=== PATIENT | female | born 2000 | race Caucasian/White ===

== ENCOUNTER 2022-07-14 00:27 | Emergency (ER) | payer OTHER, SELFPAY ==
[2022-07-14 00:28] VITALS: BP 115/78; PULSE 77; RESP 18; TEMP 36.9; O2SAT 98; BMI 22.7
--- NOTE | 2022-07-14 00:54 | EDS_ITS ---
HPI History of Present Illness Chief Complaint: Confusion Informant: patient and parent Narrative Narrative: Most of the history is really through parents. Patient will nod yes and no. They bring her in because she has not slept now in 5 days. She will sleep maybe half an hour. When this happens she seems to get a little confused. By confused they mean that she walks around more and goes away from the house more than normal. She also leaves notes around the house which is a little different than normal. She had same thing happen about 4 or 5 years ago. She was placed on 1 or 2 medicines for a few months and things got better. She does have history of increased stress and anxiety compared to most. She was working at a job as a teacher until 2 or so months ago. Mom states that it was just too stressful for her. It sounds like she does not handle stressful situations well. Patient has been eating and drinking normally. There is no weakness or numbness. She is not complaining of headaches. No visual complaints. Her mom states that physically she is just fine. But mentally she is not doing real well. They did try seeing a chiropractor a while ago but this did not give any benefit but nor did it worsen things. She has not been ill recently with fevers or chills. PFSH PFSH Home Medications lorazepam 1 mg tablet (Ativan) 1 mg PO QHS PRN anxiety #6 tabs 07/14/22 [Rx Last Taken Unknown] Allergy/AdvReac Type Severity Reaction Status Date / Time No Known Allergies Allergy Verified 07/14/22 00:34 Social History Smoking Status: Never smoker ROS ROS ED Constitutional Constitutional ED: Denies chills, fever(s), subjective or weight loss Eyes Eyes: Denies change in vision ENT ENT ED: Denies rhinorrhea or sore throat Cardiovascular Cardiovascular: Denies chest pain Respiratory/Chest Respiratory/Chest: Denies cough or dyspnea Gastrointestinal Gastrointestinal: Denies diarrhea, nausea or vomiting Genitourinary Genitourinary ED: Denies dysuria Musculoskeletal Musculoskeletal: Denies arthralgias or myalgias Integumentary Denies rash Neurologic Neurologic: Denies headache(s), paresthesias or weakness Psychiatric Psychiatric: Reports anxiety Endocrine Endocrinology: Denies polydipsia or polyuria Hematologic/Lymphatic Hematologic/Lymphatic: Denies anemia Allergic/Immunologic Allergic/Immunologic ED: Denies urticaria EXAM Physical Exam Narrative Exam Narrative: Patient is awake alert no acute distress. She does seem very cautious or frightful of me. She is very comfortable with mom or dad. She is reassured by mom's holding her. HEENT: No trauma. No pallor. Eyes: Normal range of motion and pupillary function. No photophobia. Neck shows no meningismus or JVD Lungs are clear bilaterally and she can take good deep breaths and she is not hypoxic. Heart is regular with no murmur gallop or rub. Pulses are normal peripherally. Abdomen is soft and nontender. It is nondistended. No CVA tenderness or suprapubic tenderness and Extremities show no tenderness or swelling. Neurologically she has normal gait balance coordination. She does seem very fearful. It is almost paranoia or fear of others. She seems very anxious. She offers little information. But she is alert and oriented. Const Vital Signs: 07/14/22 00:28 07/14/22 04:14 Temperature 98.4 F Temperature Source Temporal Pulse Rate 77 77 Respiratory Rate 18 Blood Pressure 115/78 106/57 L Blood Pressure Mean 90 73 Pulse Ox 98 98 Oxygen Delivery Method Room Air Room Air MDM MDM MDM Narrative Medical decision making narrative: Patient CBC electrolytes liver function test TSH and are all negative. Urinalysis also shows no sign of infection. Patient was given Ativan. She seemed almost get more upset and agitated with this. So she was given Geodon. She has been sleeping soundly now. She has not slept in about 5 days. Nurse talk more with the family. It sounds like this has been a waxing and waning thing for about 5 years. It is surprising that a very [facility] patient is not at the age of 22. My suspicion is that her presentation now and over the last 5 years are likely due to a psychiatric illness. It was discussed with the family if they would like a crisis evaluation for possible placement and treatment. But at this time it seems like they would like to take her home when she wakes up more. So we are observing her for a while. Patient's recheck. She is actually more calm. She is starting to wake up. She would like the O2 sat off of her finger which is fine. I talked with mom again. They would like to take her home and have follow-up as an outpatient. They prefer not having psychiatric evaluation now. I will write for some Ativan to take at night for 4 or 5 nights. This will hopefully get her in a rhythm with sleeping. Certainly if things worsen she may end up needing psychiatric admission. I think this patient likely does have psychiatric illness that they have managed at home for quite some years. But the patient is not suicidal or homicidal. She is not unable to care for herself. She has a very supportive family. I do not think they require or able to be forced admission at this time. Lab Data Attestation: I reviewed the patient's lab results. Labs: Laboratory Results - last 24 hr 07/14/22 07/14/22 07/14/22 01:05 01:05 01:05 WBC 9.2 RBC 4.58 Hgb 13.3 Hct 40.0 MCV 87.3 MCH 29.0 MCHC 33.3 RDW Std Deviation 39.6 RDW Coeff of Brayan 12.5 Plt Count 278 MPV 8.0 Immature Gran % (Auto) 0.200 Neut % (Auto) 64.3 Lymph % (Auto) 27.9 [place] % (Auto) 6.2 Eos % (Auto) 1.0 Baso % (Auto) 0.4 Absolute Neuts (auto) 5.9 Absolute Lymphs (auto) 2.55 Nucleated RBC % 0 Sodium 141 Potassium 3.6 Chloride 106 Carbon Dioxide 27.0 Anion Gap 8 BUN 8 Creatinine 0.79 Estim Creat Clear Calc 84.29 Est GFR (MDRD) Af Amer 117 Est GFR (MDRD) Non-Af 97 BUN/Creatinine Ratio 10.1 Glucose 101 Calcium 8.9 Total Bilirubin 0.40 AST 19 ALT 27 Alkaline Phosphatase 54 Total Protein 8.0 Albumin 4.1 Globulin 3.9 Albumin/Globulin Ratio 1.1 TSH 0.67 Serum , Qual NEGATIVE Urine Color Urine Clarity Urine pH Ur Specific Trent Urine Protein Urine Glucose (UA) Urine Ketones Urine Occult Blood Urine Nitrite Urine Bilirubin Urine Urobilinogen Ur Leukocyte Esterase Urine RBC Urine WBC Ur Squamous Epith Cells Urine Bacteria Urine Mucus 07/14/22 01:10 WBC RBC Hgb Hct MCV MCH MCHC RDW Std Deviation RDW Coeff of Brayan Plt Count MPV Immature Gran % (Auto) Neut % (Auto) Lymph % (Auto) [place] % (Auto) Eos % (Auto) Baso % (Auto) Absolute Neuts (auto) Absolute Lymphs (auto) Nucleated RBC % Sodium Potassium Chloride Carbon Dioxide Anion Gap BUN Creatinine Estim Creat Clear Calc Est GFR (MDRD) Af Amer Est GFR (MDRD) Non-Af BUN/Creatinine Ratio Glucose Calcium Total Bilirubin AST ALT Alkaline Phosphatase Total Protein Albumin Globulin Albumin/Globulin Ratio TSH Serum , Qual Urine Color Yellow Urine Clarity Clear Urine pH 7.0 Ur Specific [place] 1.010 Urine Protein Negative Urine Glucose (UA) Normal Urine Ketones 50 H Urine Occult Blood 10 H Urine Nitrite Negative Urine Bilirubin 3 H Urine Urobilinogen Normal Ur Leukocyte Esterase 100 H Urine RBC 0 SEEN Urine WBC 0-5 SEEN Ur Squamous Epith Cells 0 SEEN Urine Bacteria 1+ Urine Mucus 0 SEEN Discharge Plan Triage Chief Complaint: Confusion ED Provider: Foreign Cantu Dx/Rx/DC Orders Clinical Impression: History of psychiatric symptoms, Insomnia Instructions: Anxiety Disorders Tx, ED Insomnia Prescriptions: New lorazepam [Ativan] 1 mg tablet 1 mg PO QHS PRN (Reason: anxiety) Qty: 6 0RF Primary Care Provider: Mata Mckeon Referrals: Mata Mckeon DO [Primary Care Provider] - As soon as possible Disposition Disposition: Home, Self Care
[2022-07-14] MEDS: LORazepam 2 MG/ML Syringe 1 MG IV (01:12)
[2022-07-14 01:15] LABS: Mucous, Urine 0 SEEN /hpf (<or=2+); Red Blood Cells-Urine 0 SEEN /hpf (0-5); Squamous Epithelial Cells - UA 0 SEEN /hpf (5-10)
[2022-07-14 01:16] LABS: Color, Urine Yellow (Yellow); Glucose, Dipstick Normal (Normal); Ketone-Dipstick 50 mg/dl (Negative); Leukocyte Esterase-Dipstick 100 /ul (Negative); Nitrite-Dipstick Negative (Negative); Occult Blood-Urine 10 /ul (Negative); Protein-Dipstick Negative (Negative); Urine Clarity Clear (Clear); Urine Urobilinogen Normal (Normal)
[2022-07-14 01:17] LABS: Absolute Lymphocyte Count 2.55 X10^3/uL (0.83-4.51); Absolute Neutrophil Count 5.9 X10^3/uL (2.0-7.7); Basophil# 0.04 X10^3/uL; Basophil% 0.4 % (0-1); Eosinophil# 0.09 X10^3/uL; Hemoglobin 13.3 g/dL (12.0-15.0); Lymphocyte # 2.55 X10^3/ul (0.83-4.51); Lymphocyte % 27.9 % (19-41); Mean Corp Hgb Conc 33.3 g/dL (32-36); Mean Corpuscular Volume 87.3 fL (81-99); Monocyte# 0.57 X10^3/uL; Monocyte% 6.2 % (0-10); NRBC Flagged by Analyzer 0 % (0-5); Neutrophil # 5.88 X10^3/uL (2.7-7.7); Neutrophil % 64.3 % (47-70); Platelet Count 278 K/mm3 (150-450); RBC Distribution Width CV 12.5 % (11.6-14.6); RBC Distribution Width SD 39.6 fl (35.1-43.9); Red Blood Count 4.58 M/mm3 (4.2-5.4); White Blood Count 9.2 K/mm3 (4.4-11.0)
[2022-07-14 01:18] LABS: Urine Bilirubin Dipstick 3 mg/dL (Negative)
[2022-07-14 01:22] LABS: Bacteria 1+ /hpf (None Seen); White Blood Cells 0-5 SEEN /hpf (0-5)
[2022-07-14 01:25] LABS: Internal QC Validated? YES +Cl - CLEAR BKGD; Pregnancy, Serum, hCG Quali. NEGATIVE Negative
[2022-07-14 01:41] LABS: ALB/GLOB Ratio 1.1 RATIO (0.9-2.4); AST(SGOT) 19 U/L (15-37); Alanine Aminotransfer ALT/SGPT 27 U/L (13-56); Albumin, Serum 4.1 g/dL (3.2-5.0); Alkaline Phosphatase 54 U/L (45-117); Anion Gap 8 (5-15); BUN 8 mg/dL (7-18); BUN/Creat Ratio 10.1 RATIO (10-20); Calcium,Total 8.9 mg/dL (8.5-10.1); Chloride 106 mmol/L (98-107); Creatinine, Serum 0.79 mg/dL (0.55-1.02); EST Glomerular Filtration Rate 97 mL/min (>60); Est Glom Filt Rate - Afr Amer 117 mL/min (>60); Estimated Creatinine Clearance 84.29 ml/min; Globulin 3.9 g/dL (2.2-4.2); Glucose 101 mg/dL (74-106); Potassium 3.6 mmol/L (3.5-5.1); Sodium Level 141 mmol/L (136-145); Thyroid Stim Hormone (TSH) 0.67 uIU/mL (0.358-3.74)
[2022-07-14] MEDS: Ziprasidone IM 20 MG/ML VIAL IM (01:49)
[2022-07-14 04:14] VITALS: BP 106/57; PULSE 77; O2SAT 98
[2022-07-14 04:47] VITALS: BP 106/67; PULSE 79; RESP 16; O2SAT 98
== END 2022-07-14 04:56 | disposition home or self-care (01) ==
PROVIDERS: Emergency Provider Emergency Medicine; PCP Family Medicine; Visit Provider Emergency Medicine
DX: G47.00 Insomnia, unspecified (principal); R41.0 Disorientation, unspecified; F41.9 Anxiety disorder, unspecified
CPT/HCPCS: 80053; 81001; 84443; 84703; 85025; 96372; 96374; 99283; A4216; J3486

== ENCOUNTER 2022-07-15 17:47 | Emergency (ER) | payer OTHER, SELFPAY ==
[2022-07-15 17:49] VITALS: BP 111/80; PULSE 82; RESP 16; TEMP 37; O2SAT 99; BMI 24.0
[2022-07-15 19:49] VITALS: RESP 14
--- NOTE | 2022-07-15 20:57 | EX.ED.VIS.PS ---
HPI HPI - Psych History of Present Illness Chief Complaint: Mental Health Informant: parent Narrative Narrative: Patient brought back in by parents for psychiatric evaluation and admission. Patient was seen in the ER early yesterday morning with not sleeping for the past 5 days, being withdrawn and staring, and admitting to some auditory hallucinations. It sounds like she has had intermittent problems in the past. She required a dose of Geodon in the hospital early yesterday morning and then was discharged home with some Ativan to help her sleep. Parents did not wish to pursue inpatient psychiatric evaluation at that time. She presents back with her parents dorcas. They contacted [facility] for psychiatric treatment. They state that the patient's case is too severe at this time and she needs to be admitted to a psychiatric hospital for stabilization before they are able to help treat her. Parents do state that the patient was able to sleep pretty well last night. Patient is staring straight ahead and not answering questions for me at this time. PFSH PFSH Medical History no medical history no medical history Home Medications lorazepam 1 mg tablet (Ativan) 1 mg PO QHS PRN anxiety #6 tabs 07/14/22 [Rx Last Taken Unknown] Allergy/AdvReac Type Severity Reaction Status Date / Time No Known Allergies Allergy Verified 07/15/22 17:49 Social History Smoking Status: Never smoker ROS ROS ED ROS Narrative Patient staring straight ahead and not answering questions. Parent states that she has not been complaining of chest or abdominal pain. She has not been complaining of headache. She would not offer information about her hallucinations, but when asked if she is hearing voices she will say yes. EXAM Physical Exam Narrative Exam Narrative: Patient is doing straightahead in the room not answering questions. Const Vital Signs: 07/15/22 17:49 07/15/22 19:49 07/15/22 21:49 Temperature 98.6 F Temperature Source Temporal Pulse Rate 82 Respiratory Rate 16 14 14 Blood Pressure 111/80 Blood Pressure Mean 90 Pulse Ox 99 Oxygen Delivery Method Room Air Positive well nourished and well developed General Appearance ED: well developed HEENT normocephalic and atraumatic Eyes EOMs intact bilaterally Resp normal respiratory effort and clear to auscultation bilaterally Cardio Rate: regular rate Rhythm: regular rhythm GI non-tender Palpation: soft Neuro Sensorium / Orientation: alert Psych Appearance: well kempt Attitude: calm Activity / Motor Behavior: avoids eye contact Speech: mute MDM MDM MDM Narrative Medical decision making narrative: Psychiatric work-up undertaken. Lab Data Labs: Laboratory Results - last 24 hr 07/15/22 07/15/22 07/15/22 21:25 21:25 21:25 WBC 8.4 RBC 4.35 Hgb 12.6 Hct 37.9 MCV 87.1 MCH 29.0 MCHC 33.2 RDW Std Deviation 38.9 RDW Coeff of Brayan 12.2 Plt Count 276 MPV 7.9 Immature Gran % (Auto) 0.400 Neut % (Auto) 58.5 Lymph % (Auto) 32.9 [place] % (Auto) 5.6 Eos % (Auto) 2.1 Baso % (Auto) 0.5 Absolute Neuts (auto) 4.9 Absolute Lymphs (auto) 2.76 Nucleated RBC % 0 Sodium 142 Potassium 3.6 Chloride 106 Carbon Dioxide 29.0 Anion Gap 7 BUN 12 Creatinine 0.84 Estim Creat Clear Calc 79.27 Est GFR (MDRD) Af Amer 109 Est GFR (MDRD) Non-Af 90 BUN/Creatinine Ratio 14.2 Glucose 113 H Calcium 8.8 Serum , Qual Ethyl Alcohol < 3.0 07/15/22 21:25 WBC RBC Hgb Hct MCV MCH MCHC RDW Std Deviation RDW Coeff of Brayan Plt Count MPV Immature Gran % (Auto) Neut % (Auto) Lymph % (Auto) [place] % (Auto) Eos % (Auto) Baso % (Auto) Absolute Neuts (auto) Absolute Lymphs (auto) Nucleated RBC % Sodium Potassium Chloride Carbon Dioxide Anion Gap BUN Creatinine Estim Creat Clear Calc Est GFR (MDRD) Af Amer Est GFR (MDRD) Non-Af BUN/Creatinine Ratio Glucose Calcium Serum , Qual NEGATIVE Ethyl Alcohol Treatment and Re-Evaluation Narrative: CBC chemistry studies are unremarkable. test is negative. Alcohol level is less than 3. At this time we are awaiting urine sample for urine tox screen. Counseling center has been contacted and will be in to evaluate the patient for placement. Patient be signed out to oncoming physician while awaiting placement. Discharge Plan Triage Chief Complaint: Mental Health ED Provider: Samantha Guevara Dx/Rx/DC Orders Clinical Impression: History of psychiatric symptoms, Auditory hallucinations Prescriptions: No Action lorazepam [Ativan] 1 mg tablet 1 mg PO QHS PRN (Reason: anxiety) Qty: 6 0RF Primary Care Provider: Mata Mckeon Referrals: Mata Mckeon DO [Primary Care Provider] - Disposition Disposition: Psychiatric Hospital or Unit
[2022-07-15 21:34] LABS: Absolute Lymphocyte Count 2.76 X10^3/uL (0.83-4.51); Absolute Neutrophil Count 4.9 X10^3/uL (2.0-7.7); Basophil# 0.04 X10^3/uL; Basophil% 0.5 % (0-1); Eosinophil# 0.18 X10^3/uL; Eosinophils% 2.1 % (0-5); Hematocrit 37.9 % (37-47); Hemoglobin 12.6 g/dL (12.0-15.0); Lymphocyte # 2.76 X10^3/ul (0.83-4.51); Lymphocyte % 32.9 % (19-41); Mean Corp Hgb Conc 33.2 g/dL (32-36); Mean Corpuscular Volume 87.1 fL (81-99); Mean Platelet Vol. 7.9 fl (6.2-12.0); Monocyte# 0.47 X10^3/uL; Monocyte% 5.6 % (0-10); NRBC Flagged by Analyzer 0 % (0-5); Neutrophil % 58.5 % (47-70); Platelet Count 276 K/mm3 (150-450); RBC Distribution Width CV 12.2 % (11.6-14.6); RBC Distribution Width SD 38.9 fl (35.1-43.9); Red Blood Count 4.35 M/mm3 (4.2-5.4); White Blood Count 8.4 K/mm3 (4.4-11.0)
[2022-07-15 21:44] LABS: Alcohol, Blood (Medical)-Serum < 3.0 mg/dL
[2022-07-15 21:46] LABS: Anion Gap 7 (5-15); BUN 12 mg/dL (7-18); BUN/Creat Ratio 14.2 RATIO (10-20); Calcium,Total 8.8 mg/dL (8.5-10.1); Chloride 106 mmol/L (98-107); Creatinine, Serum 0.84 mg/dL (0.55-1.02); EST Glomerular Filtration Rate 90 mL/min (>60); Est Glom Filt Rate - Afr Amer 109 mL/min (>60); Estimated Creatinine Clearance 79.27 ml/min; Glucose 113 mg/dL (74-106); Potassium 3.6 mmol/L (3.5-5.1); Sodium Level 142 mmol/L (136-145)
[2022-07-15 21:49] VITALS: RESP 14
[2022-07-15 21:56] LABS: Internal QC Validated? YES +Cl - CLEAR BKGD; Pregnancy, Serum, hCG Quali. NEGATIVE Negative
--- NOTE | 2022-07-15 22:16 | NURSING ---
CALLED CRISIS AT [phone]
[2022-07-15 23:00] VITALS: RESP 16
[2022-07-16] VITALS: BP 114/68; PULSE 79; RESP 16; O2SAT 99
--- NOTE | 2022-07-16 00:10 | ED.RN ---
Pt observed wandering down the halls and entering other patients rooms. parents are following the patient but not stopping her or redirecting her. This RN explains that the patient cannot be wandering around the department and cannot enter other patient rooms. I asked the parents to try to keep her in the room or ask staff for help.
[2022-07-16 01:00] VITALS: RESP 18
--- NOTE | 2022-07-16 02:25 | ED.RN ---
Patients parents dosed off and patient wandered out of room. Patients father comes to nursing desk asking have you seen Radha? Staff search for her and she was found in another vacant patient room with the lights off and door shut. This RN escorted patient back to the room with parents.
--- NOTE | 2022-07-16 02:35 | ED.RN ---
Maria Luisa from crisis calls stating patient is pending at [facility].
[2022-07-16 03:00] VITALS: RESP 18
[2022-07-16 04:00] VITALS: RESP 16
[2022-07-16 05:00] VITALS: RESP 16
[2022-07-16 07:57] VITALS: BP 109/73; PULSE 68; RESP 15; O2SAT 98
== END 2022-07-16 08:46 ==
PROVIDERS: Emergency Provider Emergency Medicine; PCP Family Medicine; Visit Provider Emergency Medicine
DX: R44.0 Auditory hallucinations (principal); Z86.59 Personal history of other mental and behavioral disorders
CPT/HCPCS: 99281; 80048; 82077; 84703; 85025; 99283